=== PATIENT | female | born 1965 | race Caucasian/White ===

== ENCOUNTER 2017-03-30 13:57 | Inpatient (IN) | payer BC ==
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
[2017-03-30] MEDS ORDERED: ALBUTEROL INHALER 60 PUFF/8 GM INHALER INHALATION PRN (23:03)
[2017-03-31] MEDS ORDERED: ACETAMINOPHEN TAB 325 MG TAB PO PRN (01:49)
[2017-03-31] MEDS ORDERED: LORazepam 1 MG TAB PO PRN (01:49)
[2017-03-31] MEDS ORDERED: MAG HYDROX/AL HYDROX/SIMETH 30 ML CUP PO PRN (01:49)
[2017-03-31] MEDS ORDERED: MAGNESIUM HYDROXIDE 2,400 MG/10 ML CUP PO PRN (01:49)
[2017-03-31] MEDS: CARBIDOPA-LEVODOPA ER 50-200MG 1 EACH TABLET.ER PO SCH ×2 (08:42→20:52)
[2017-03-31] MEDS: TAMOXIFEN 10 MG TAB PO SCH (08:43)
[2017-03-31 09:45] VITALS: BMI 18.6
[2017-03-31 10:09] LABS: Basophils % (A) 0 %; CH 34.5; CHCM 36.5; Eosinophils # (A) 0.1 k/uL (0-0.7); Eosinophils % (A) 1 %; HCT 40.9 % (34.0-46.0); HDW 2.88; HGB 14.2 gm/dL (11.4-16.0); Luc # (Auto) 0.17; Luc % (Auto) 2; Lymphocytes # (A) 1.2 k/uL (1.0-4.8); Lymphocytes % (A) 15 %; MCH 32.9 pg (25.0-35.0); MCHC 34.7 g/dL (31.0-37.0); MCV 94.9 fL (80.0-100.0); Mean Platelet Volume 6.7; Monocytes # (A) 0.5 k/uL (0-1.0); Monocytes % (A) 7 %; Neutrophils % (A) 75 %; RBC 4.31 m/uL (3.80-5.40); RDW 13.7 % (11.5-15.5); WBC 7.9 k/uL (3.8-10.6); WBC (Perox) 7.63
[2017-03-31] MEDS: NICOTINE 14MG/24HR PATCH TRANSDERM SCH (11:02)
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
[2017-03-31 14:04] LABS: ALT 29 U/L (9-52); AST 25 U/L (14-36); Alkaline Phosphatase 100 U/L (38-126); Anion Gap 11 mmol/L; Blood Urea Nitrogen 8 mg/dL (7-17); Calcium 9.9 mg/dL (8.4-10.2); Carbon Dioxide 25 mmol/L (22-30); Chloride 103 mmol/L (98-107); Glucose 107 mg/dL (74-99); Non-African American GFR(MDRD) >60 (>60 ml/min/1.73 sqM); Potassium 4.1 mmol/L (3.5-5.1); Sodium 139 mmol/L (137-145); Total Bilirubin 0.8 mg/dL (0.2-1.3); Total Protein 6.8 g/dL (6.3-8.2)
[2017-03-31] MEDS: PRAVASTATIN SODIUM 40 MG TAB PO SCH (20:52)
[2017-03-31] MEDS: LORATADINE 10 MG TAB PO SCH (20:52)
[2017-04-01] MEDS: CARBIDOPA-LEVODOPA ER 50-200MG 1 EACH TABLET.ER PO SCH ×2 (09:03→20:58)
[2017-04-01] MEDS: TAMOXIFEN 10 MG TAB PO SCH (09:03)
[2017-04-01] MEDS: NICOTINE 14MG/24HR PATCH TRANSDERM SCH (09:03)
--- NOTE | 2017-04-01 10:57 | P.CONS ---
History of Present Illness - Reason for Consult Consult date: 04/01/17 Medical management - Chief Complaint Alcohol intoxication - History of Present Illness 52-year-old female currently in the psych unit for management of depression. Patient was brought into the emergency room by police after she was found intoxicated with alcohol and carrying episode. There was concern that she make herself. Patient denies any suicidal thought. She said that the weapon was on the table. She is feeling a lot better today. I was asked to see her for medical management. She does not have any complaints. Review of Systems Review of system: 14 points review of systems were obtained and were negative except to what were mentioned in the HPI. Past Medical History Past Medical History: Cancer Additional Past Medical History / Comment(s): breast cancer History of Any Multi-Drug Resistant Organisms: None Reported Past Surgical History: Breast Surgery Past Psychological History: Anxiety, Depression Smoking Status: Current every day smoker Past Alcohol Use History: Abuse Past Drug Use History: None Reported Medications and Allergies Home Medications Medication Instructions Recorded Confirmed Type Albuterol Inhaler [Ventolin Hfa 2 puff INHALATION RT-Q4H PRN 03/30/17 03/31/17 History Inhaler] Carbidopa/Levodopa [Sinemet CR 1 tab PO BID 03/30/17 03/31/17 History 50-200 mg] Cetirizine HCl [Zyrtec] 10 mg PO HS 03/30/17 03/31/17 History Pravastatin Sodium [Pravachol] 40 mg PO HS 03/30/17 03/31/17 History Tamoxifen Citrate 20 mg PO DAILY 03/30/17 03/31/17 History Allergies Allergy/AdvReac Type Severity Reaction Status Date / Time cephalexin [From Keflex] Allergy Unknown Verified 03/31/17 04:18 Penicillins Allergy Unknown Verified 03/31/17 04:18 Physical Exam Vitals: Vital Signs Temp Pulse Resp BP 04/01/17 06:46 97.9 F 84 16 138/76 General: The patient is awake and alert, in no distress Eye: there is normal conjunctiva bilaterally. Neck: The neck is supple, there is no JVD. Cardiovascular: Normal S1-S2, no S3-S4, no murmurs. Respiratory: Lungs clear to auscultation bilaterally Gastrointestinal: Abdomen is soft, nontender Musculoskeletal: There is no pedal edema. Neurological:. Speech is normal. Skin: Skin is warm and dry Results CBC & Chem 7: 03/31/17 09:39 03/31/17 09:39 Labs: Abnormal Lab Results - Last 24 Hours (Table) 03/31/17 Range/Units 09:39 Glucose 107 H (74-99) mg/dL Assessment and Plan Plan: 1. Depression 2. Suspected suicidal attempt 3. Alcohol abuse 4. History breast cancer status post lumpectomy currently on tamoxifen 5. Restless leg syndrome Today, I reviewed her medication list and lab work results. Continue current regimen. Thank you very much for the consultation. I will continue to follow up on the patient closely.
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
[2017-04-01] MEDS: PRAVASTATIN SODIUM 40 MG TAB PO SCH (20:58)
[2017-04-01] MEDS: LORATADINE 10 MG TAB PO SCH (20:58)
--- NOTE | 2017-04-02 07:33 | P.PN ---
Progress Note - Text Interval history: The patient is found in the library she follows me to an interview room she reports her mood is stabilizing. She is looking forward to her family meeting involving her this morning. She is also looking forward to her son's visiting this evening. She reports sleep is stable appetite is improved. She is attending groups she is reporting no symptoms of depression she is endorsing no hopelessness no suicidal ideation intent or plan. She states she is trying to "stay positive". Mental status exam: The patient is alert she is dressed in her own clothing eye contact is appropriate hygiene grooming are adequate. Speech is fluent spontaneous nonpressured. She is reporting no suicidal or homicidal ideation intent or plan. She is reporting no auditory or visual hallucinations no specific delusions there is no evidence of psychosis. She does not appear hypomanic or manic. She is pleasant and cooperative and easily directed in the session. She demonstrates no verbal or physical aggressiveness. Insight and judgment improving. Plan: The patient will continue on medication as written. She appears to be stabilizing. We will look for input from the family meeting. Vital signs reviewed they're within normal limits we will continue to monitor her for safety. She is encouraged to continue participating in the milieu.
[2017-04-02] MEDS: NICOTINE 14MG/24HR PATCH TRANSDERM SCH (09:21)
[2017-04-02] MEDS: CARBIDOPA-LEVODOPA ER 50-200MG 1 EACH TABLET.ER PO SCH ×2 (09:22→21:16)
[2017-04-02] MEDS: TAMOXIFEN 10 MG TAB PO SCH (09:22)
[2017-04-02] MEDS: PRAVASTATIN SODIUM 40 MG TAB PO SCH (21:16)
[2017-04-02] MEDS: LORATADINE 10 MG TAB PO SCH (21:16)
[2017-04-03 06:42] VITALS: BP 119/71; PULSE 88; RESP 16; TEMP 97.8
[2017-04-03] MEDS: NICOTINE 14MG/24HR PATCH TRANSDERM SCH (09:25)
[2017-04-03] MEDS: CARBIDOPA-LEVODOPA ER 50-200MG 1 EACH TABLET.ER PO SCH (09:26)
[2017-04-03] MEDS: TAMOXIFEN 10 MG TAB PO SCH (09:26)
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
== END 2017-04-03 13:05 | disposition home or self-care (01) | DRG 881 ==
LOC: EC 13:57 → 3MHU 03-31 00:06
PROVIDERS: ADMIT Psychiatry & Neurology Addiction Medicine; ATTEND Psychiatry & Neurology Addiction Medicine
DX: F32.9 Major depressive disorder, single episode, unspecified (principal); R45.851 Suicidal ideations; F10.129 Alcohol abuse with intoxication, unspecified; F17.200 Nicotine dependence, unspecified, uncomplicated; F41.9 Anxiety disorder, unspecified; G25.81 Restless legs syndrome; Z79.899 Other long term (current) drug therapy; Z85.3 Personal history of malignant neoplasm of breast; Z91.5 Personal history of self-harm; Z88.1 Allergy status to other antibiotic agents; Z88.0 Allergy status to penicillin; Y90.6 Blood alcohol level of 120-199 mg/100 ml
CPT/HCPCS: 80053; 80306; 81025; 82075; 84443; 85025

== ENCOUNTER → 2017-04-25 | Outpatient (CLI) | payer BC ==
--- NOTE | 2017-04-26 07:02 | US ---
EXAMINATION TYPE: US pelvis complete transvag DATE OF EXAM: 04/25/2017 COMPARISON: NONE CLINICAL HISTORY: R10.32, C44.501, R10.2, R63, PELVIC PAIN,WEIGHT LOSS,PPL ALVARADO. pelvic pain, weight l oss, breast cancer, on tamoxifen. TECHNIQUE: Transvaginal (TV) and Transabdominal (TA) Date of LMP: 2011 EXAM MEASUREMENTS: Uterus: 4.1 x 3.3 x 4.5 cm Endometrial Stripe: 1.0 cm Right Ovary: unable to visualize Left Ovary: unable to visualize 1. Uterus: Retroverted heterogenous, nabothian cysts 2. Endometrium: upper limits of normal calcifications noted 3. Right Ovary: unable to visualize 4. Left Ovary: unable to visualize 5. Bilateral Adnexa: WNL 6. Posterior cul-de-sac: WNL IMPRESSION: No definite abnormality identified at this time.
== END | disposition home or self-care (01) ==
LOC: RADUSWWP 15:35
PROVIDERS: ATTEND Family Medicine
DX: R10.32 Left lower quadrant pain (principal); C44.501 Unspecified malignant neoplasm of skin of breast; R10.2 Pelvic and perineal pain; R63.4 Abnormal weight loss
CPT/HCPCS: 76830; 76856

== ENCOUNTER → 2018-03-15 | Outpatient (CLI) | payer BC ==
--- NOTE | 2018-03-15 11:29 | XR ---
EXAMINATION TYPE: XR chest 2V DATE OF EXAM: 03/15/2018 COMPARISON: None HISTORY: Persistent cough TECHNIQUE: Frontal and lateral views of the chest are obtained. FINDINGS: There is no focal air space opacity, pleural effusion, or pneumothorax seen. The cardiac silhouette size is within normal limits. The osseous structures are intact. Left breast surgical cl ips are noted. There is an incidentally noted partially visualized chondroid matrix, likely intramedu llary proximal right humeral lesion. IMPRESSION: 1. No acute cardiopulmonary process. 2. Partially visualized chondroid matrix proximal right humeral lesion likely intramedullary. This mo st likely represents an enchondroma or bone infarct. However dedicated radiographs of the right humer us are recommended.
== END | disposition home or self-care (01) ==
LOC: RADXRMAIN 11:08
PROVIDERS: ATTEND Family Medicine
DX: J41.0 Simple chronic bronchitis (principal); F17.200 Nicotine dependence, unspecified, uncomplicated
CPT/HCPCS: 71046

== ENCOUNTER → 2018-04-10 | Outpatient (CLI) | payer BC ==
--- NOTE | 2018-04-10 13:44 | XR ---
EXAMINATION TYPE: XR humerus RT DATE OF EXAM: 04/10/2018 COMPARISON: Chest x-ray 03/15/2018 HISTORY: Abnormal findings TECHNIQUE: 2 view right humerus FINDINGS: There is an irregular sclerotic area within the metaphysis of the proximal humerus. Medulla ry infarct could be considered. Metastatic disease is considered less likely but not excluded. Remaining portions of the humerus appear intact. No additional suspicious lytic or sclerotic areas ar e evident. Joint spaces appear preserved. No acute fractures are evident. IMPRESSION: 1. Sclerotic area within the proximal metaphysis right humerus. Findings suggest medullary infarct.
== END | disposition home or self-care (01) ==
LOC: RADXRMAIN 10:28
PROVIDERS: ATTEND Family Medicine
DX: R93.8 Abnormal findings on diagnostic imaging of other specified body structures (principal)

== ENCOUNTER → 2018-05-29 | Outpatient (CLI) | payer BC ==
--- NOTE | 2018-05-30 01:16 | MR ---
EXAMINATION TYPE: MR shoulder RT wo con DATE OF EXAM: 05/29/2018 COMPARISON: None HISTORY: Hx of breast ca / M89.9 Disorder of bone abnormal chest x-ray TECHNIQUE: Multiplanar, multisequence imaging of the right shoulder is performed without contrast. FINDINGS: On the T2 images there is mixed high and low signal 2 cm somewhat rounded area in the humeral head in volving the metaphysis. The humeral cortex appears intact. The margins are sharp. Appearance is consi stent with osteosclerosis and cystic change related to bone infarct. Subscapularis tendon is intact. Glenoid vero appear intact. There is some fluid in the subacromial j oint space. There is some thinning and slight increased signal in the supraspinatus tendon. There is no retraction. There is no evidence of a fracture. The biceps tendon is intact. IMPRESSION: Mixed signal well-defined lesion in the humeral head consistent with bone infarct. Increased signal in the supraspinatus tendon with fluid consistent with partial tear and tendinitis. No retraction. I do not see a definite full-thickness tear.
== END | disposition home or self-care (01) ==
LOC: RADMRIMAIN 16:32
PROVIDERS: ATTEND Family Medicine
DX: M89.9 Disorder of bone, unspecified (principal); Z85.3 Personal history of malignant neoplasm of breast

== ENCOUNTER → 2019-02-06 | Outpatient (CLI) | payer BC ==
--- NOTE | 2019-02-06 13:35 | XR ---
EXAMINATION TYPE: XR shoulder complete LT DATE OF EXAM: 02/06/2019 CLINICAL HISTORY: pain COMPARISON: NONE TECHNIQUE: Three views of the left shoulder are obtained. FINDINGS: There is no acute fracture/dislocation evident. The acromioclavicular and glenohumeral mayank int spaces appear within normal limits. The visualized ribs are intact and unremarkable. IMPRESSION: 1. There is no acute fracture or dislocation. ICD 10 NO FRACTURE, INITIAL EVALUATION
--- NOTE | 2019-02-06 13:36 | XR ---
EXAMINATION TYPE: XR Hip Complete LT DATE OF EXAM: 02/06/2019 CLINICAL HISTORY: pain TECHNIQUE: AP and frogleg views of the left hip are obtained. COMPARISON: None. FINDINGS: There is no acute fracture/dislocation evident. The joint space appears within normal li mits. The overlying soft tissue appears unremarkable. IMPRESSION: 1. There is no acute fracture or dislocation.ICD 10 NO FRACTURE, INITIAL EVALUATION
== END ==
LOC: RADXRMAIN 13:14
PROVIDERS: ATTEND Family Medicine
DX: M25.512 Pain in left shoulder (principal); M25.552 Pain in left hip; M54.5 Low back pain
CPT/HCPCS: 73502

== ENCOUNTER → 2019-04-03 | Outpatient (CLI) | payer BC ==
--- NOTE | 2019-04-03 11:54 | XR ---
EXAMINATION TYPE: XR lumbosacral spine min 4V DATE OF EXAM: 04/03/2019 CLINICAL HISTORY: Back pain TECHNIQUE: Frontal, lateral, and oblique images of the lumbar spine are obtained. COMPARISON: None FINDINGS: There are 5 lumbar type vertebral bodies identified. The lumbar spine shows satisfactory alignment without evidence of acute fracture or dislocation. Facet arthropathy is seen at L5-S1 predo minating on the left. Vertebral body heights and disk space heights are within normal limits. The o blique images appear within normal limits. The overlying soft tissue appears unremarkable. Mild athe rosclerosis of the abdominal aorta is noted. IMPRESSION: No acute fracture or malalignment is seen in the lumbar spine. Mild facet arthropathy at L5-S1. Given the patient's symptoms MRI could evaluate for disc disease or disc herniation.
--- NOTE | 2019-04-03 15:21 | MR ---
EXAMINATION TYPE: MR shoulder LT wo con DATE OF EXAM: 04/03/2019 COMPARISON: Plain film 02/06/2019 HISTORY: Left shoulder pain TECHNIQUE: Multiplanar, multisequence imaging of the left shoulder is performed without contrast. FINDINGS: Rotator Cuff: The rotator cuff is attenuated the level of its insertion, partial full-thickness thick ness tear is suspected at the supraspinatus insertion anteriorly. Acromioclavicular Joint: Distal acromion is downturned, there is likely a distal acromial spur. Clini teddy history joint arthropathy is present. There is fluid signal in the subacromial subdeltoid bursa. Glenohumeral Joint: Intact and there is some arthropathy glenohumeral joint, remodeling of humeral he ad with some mild joint space loss Labrum: No evident tear Biceps Tendon: The long head of biceps is in normal location within bicipital groove. Bone marrow signal: Pseudocysts are present in the humeral head. Other: No additional significant abnormality is appreciated. IMPRESSION: Partial full-thickness tear of the rotator cuff, correlate for impingement. Additional findings above .
== END ==
LOC: RADMRIMAIN 09:51
PROVIDERS: ATTEND Family Medicine
DX: M75.102 Unspecified rotator cuff tear or rupture of left shoulder, not specified as traumatic (principal); M46.97 Unspecified inflammatory spondylopathy, lumbosacral region; M54.16 Radiculopathy, lumbar region
CPT/HCPCS: 72110

== ENCOUNTER → 2019-04-18 | Outpatient (CLI) | payer BC ==
--- NOTE | 2019-04-18 16:27 | MR ---
EXAMINATION TYPE: MR lumbar spine wo con DATE OF EXAM: 04/18/2019 COMPARISON: None HISTORY: Radiculopathy, lumbar region CONTRAST: 0 mL intravenous Gadavist. TECHNIQUE: Multiplanar, multisequence images of the lumbar spine were acquired. FINDINGS: L5-S1: No significant disc bulge or disc herniation. No spinal canal stenosis. No foraminal stenosi s. . L4-L5: No significant disc bulge or disc herniation. No spinal canal stenosis. No foraminal stenosi s. . L3-L4: No significant disc bulge or disc herniation. No spinal canal stenosis. No foraminal stenosi s. . L2-L3: No significant disc bulge or disc herniation. No spinal canal stenosis. No foraminal stenosi s. . L1-L2: No significant disc bulge or disc herniation. No spinal canal stenosis. No foraminal stenosi s. . T12-L1: No significant disc bulge or disc herniation. No spinal canal stenosis. No foraminal stenos is. . Cord terminates at a normal L1 level IMPRESSION: 1. No suspicious disc herniations or significant disc bulges. No spinal canal stenosis. Mild disc radha iccation is present without loss of disc height or vertebral body height
== END | disposition home or self-care (01) ==
LOC: RADMRIMAIN 12:19
PROVIDERS: ATTEND Family Medicine
DX: M54.16 Radiculopathy, lumbar region (principal)
CPT/HCPCS: 72148

== ENCOUNTER → 2019-05-01 | Outpatient (CLI) | payer BC ==
[2019-05-01 11:06] LABS: Basophils % (A) 0 %; Eosinophils # (A) 0.1 k/uL (0-0.7); Eosinophils % (A) 1 %; HCT 36.2 % (34.0-46.0); HGB 13.3 gm/dL (11.4-16.0); Lymphocytes # (A) 2.6 k/uL (1.0-4.8); Lymphocytes % (A) 22 %; MCH 35.1 pg (25.0-35.0); MCHC 36.9 g/dL (31.0-37.0); MCV 95.3 fL (80.0-100.0); Mean Platelet Volume 7.2; Monocytes # (A) 0.4 k/uL (0-1.0); Monocytes % (A) 3 %; Neutrophils # (A) 8.4 k/uL (1.3-7.7); Neutrophils % (A) 72 %; Platelet Count 230 k/uL (150-450); RDW 14.5 % (11.5-15.5); WBC 11.7 k/uL (3.8-10.6)
[2019-05-01 11:17] LABS: Potassium 4.6 mmol/L (3.5-5.1)
== END | disposition home or self-care (01) ==
LOC: LABPAT 09:50
PROVIDERS: ATTEND Orthopaedic Surgery
DX: Z01.812 Encounter for preprocedural laboratory examination (principal); M75.42 Impingement syndrome of left shoulder
CPT/HCPCS: 36415; 80051; 85025

== ENCOUNTER → 2019-05-08 | Day surgery (SDC) | payer BC ==
[2019-05-01 16:04] VITALS: BMI 18.6
--- NOTE | 2019-05-07 15:40 | HP ---
HISTORY AND PHYSICAL REASON FOR ADMISSION: Surgery scheduled for 05/08/2019 HISTORY OF PRESENT ILLNESS: Radha Puentes is a 54-year-old patient seen with progressive left shoulder pain. After treatment options were discussed with her, she elected to proceed with left shoulder arthroscopy. Consent was obtained. PAST MEDICAL HISTORY: Noncontributory. PAST SURGICAL HISTORY: Noncontributory. MEDICATIONS: Restoril, tamoxifen. ALLERGIES: PENICILLIN. SOCIAL HISTORY: She smokes 1 pack of cigarettes daily. PHYSICAL EXAMINATION: Physical examination of left shoulder: Flexion 90 degrees, abduction 70 degrees, external rotation 20 degrees with weakness. There is tenderness along the anterior lateral acromion rotator cuff insertion site. Her impingement sign is positive at 70 degrees. Distal neurovascular exam is intact. RADIOGRAPHS: Radiographs of the left shoulder revealed a lateral downsloping anterior acromion on the left. MRI left shoulder revealed rotator cuff tear. IMPRESSION: Left shoulder impingement with rotator cuff tear. PLAN: Left shoulder arthroscopy with subacromial decompression, possible arthroscopic rotator cuff repair and debridement. Surgery scheduled for 05/08/2019. MMODL / IJN: [id number] /
[~2019-05-08] MED LIST: DEXAMETHASONE SOD PHOSPHATE 4 MG/ML 1 ML VIAL IV ONE; DEXAMETHASONE SOD PHOSPHATE 4 MG/ML 1 ML VIAL ONE; GLYCOPYRROLATE 0.2 MG/ML 2 ML VIAL ONE; LACTATED RINGERS 1,000 ML IV ONE; LIDOCAINE 1% 20 ML VIAL (10MG/ML) FOR IV START INTRADERMA ONE; LIDOCAINE 1% INJ 10MG/ML (20 ML MDV) ONE; MIDAZOLAM (PF) 2 MG/2 ML VIAL IV ONE; MIDAZOLAM 2 MG/2 ML VIAL ONE; NEOSTIGMINE 1 MG/ML 10 ML VIAL ONE; ONDANSETRON 4 MG/2 ML VIAL IVP ONE; PHENYLEPHRINE-0.9% NACL SYG 1 MG/10 ML SYRINGE ONE; PROPOFOL 10 MG/ML 20 ML VIAL IV ONE; ROCURONIUM BROMIDE 10 MG/ML 10 ML VIAL IV ONE; ROPIVACAINE 5 MG/ML 30 ML VIAL ONE; SUCCINYLCHOLINE CHLORIDE 100 MG/5 ML SYR IV ONE; fentaNYL (PF) 50 MCG/ML 2 ML AMP ONE
--- NOTE | 2019-05-08 11:39 | P.OP ---
Date of Procedure: 05/08/19 Preoperative Diagnosis: Left shoulder impingement Postoperative Diagnosis: 1. Left shoulder rotator cuff tear 2. Left shoulder impingement 3. Left shoulder partial long head biceps tendon tear 4. Left shoulder superficial labral tear 5. 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 Left shoulder arthroscopic rotator cuff repair 2. Left shoulder arthroscopic subacromial decompression 3. Left shoulder arthroscopic biceps tenotomy 4. Left shoulder arthroscopic debridement labral tear Implants: 14.75 Arthrex swivel lock anchor Anesthesia: GETA, regional (Interscalene block) Surgeon: Nicolas Sweeney Brim Pouncing Machine Operator #1: Pancho Lewis Estimated Blood Loss (ml): 10 Pathology: none sent Condition: stable Disposition: PACU Indications for Procedure: 54-year-old patient seen with progressive left shoulder pain. After treatment options were discussed, she elected to proceed with arthroscopy. Operative Findings: See description of procedure Description of Procedure: Patient underwent an interscalene block by department of anesthesia for postoperative pain management. The patient was then taken to the operative suite. The patient underwent a general anesthetic by the department of anesthesia. The patient was placed into a lateral position and secured. There was appropriate padding of the bony prominence. Left shoulder was then prepped and draped in normal sterile orthopedic fashion. We placed the extremity in 10 pounds of longitudinal traction. A posterior incision was now made for a posterior working portal site. The trocar and cannula were inserted into the glenohumeral joint. Arthroscopy was initiated. Spinal needle was now inserted anteriorly, to ascertain the anterior working portal site. An incision was now made in that area, a trocar was inserted followed by a probe. There was superficial tearing noted of the superior labrum. There was partial tearing and hyperemia long head biceps tendon. I couldn't visualize rotator cuff tear from the glenohumeral side. There was an area of grade 2/3 chondromalacia in the superior area of the humeral head. There was no osteochondral tears present there. I performed an arthroscopic biceps tenotomy. I debrided the superficial labral tear down to stable tissue. The residual labrum was stable. Instruments now removed from the glenohumeral joint. Utilizing the posterior working portal site, the trocar and cannula were inserted into the subacromial space. Arthroscopy initiated. I made an incision 2 fingerbreadths lateral to the acromion. I introduced my trocar followed by my ArthroCare ablator. I now began ablating thick subacromial bursal tissue, which exposed the undersurface of the anterior acromion. There was diminished subacromial space. There was a very prominent anterior acromion. A motorized bur was introduced and a subacromial decompression was performed. I also excised some osteophytes off the inferior aspect of the distal clavicle. The AC joint was visualized and noted to be moderately arthritic. I turned my attention to the rotator cuff tendon. There was an obvious full-thickness tear measuring about 1 cm. There was significant partial tearing superficially around areas well. I debrided the margins an area down to stable tendon tissue. The defect now measured 1.5 cm. It was freely mobile over the footprint. I abraded the footprint with a motorized bur. I now with the assistance of López ARMAS pasted 2 everted mattress sutures through good bites of rotator cuff tendon. I then punched the hole in the footprint for insertion of her anchor. We then passed all 4 limbs of suture through the eyelet of a 4.75 Arthrex swivel lock anchor. The eyelet was now placed into our pre-punch hole. López ARMAS t ension the sutures appropriately while the anchor in position and he inserted the anchor with good fixation noted. All residual suture limbs were now clipped. We had good compression of the tendon along the entire footprint. I injected 1 mL Renue intra-articular. Instruments now removed from the portal sites. All portal sites were approximated with nylon suture. Sterile dressings were applied followed by a shoulder sling. Pancho ARMAS assisted in this complex case. The patient was awakened, transferred to a bed, and taken to recovery in stable condition.
[2019-05-08 11:40] VITALS: TEMP 97.5
[2019-05-08 11:48] VITALS: RESP 16
[2019-05-08 13:19] VITALS: BP 109/68; PULSE 80
--- NOTE | 2019-05-08 14:54 | P.ANPRN ---
Procedure Note - Anesthesia - Nerve Block Performed Left Interscalene Single Time Out Performed: Yes Date of Procedure: 05/08/19 Procedure Start Time: 08:39 Procedure Stop Time: 08:44 Location of Patient Procedure: PreOp Indication: Acute Post-Operative Pain, Requested by physician Sedation Type: Sedate with meaningful contact maintained Preparation: Sterile Prep Position: Supine Needle Types: Pajunk Needle Gauge: 21 Technique: Ultrasound (Ropivacaine 0.5% 30 mL plus dexamethasone 4 mg) Blood Aspirated: No Pain Paresthesia on Injection Noted: No Resistance on Injection: Normal Events: Uneventful and Well Tolerated
== END | disposition home or self-care (01) ==
LOC: OR 07:40
PROVIDERS: ATTEND Orthopaedic Surgery
DX: M75.102 Unspecified rotator cuff tear or rupture of left shoulder, not specified as traumatic (principal); M75.42 Impingement syndrome of left shoulder; S46.112A Strain of muscle, fascia and tendon of long head of biceps, left arm, initial encounter; S43.432A Superior glenoid labrum lesion of left shoulder, initial encounter; X58.XXXA Exposure to other specified factors, initial encounter; M94.20 Chondromalacia, unspecified site; M25.712 Osteophyte, left shoulder; Z79.810 Long term (current) use of selective estrogen receptor modulators (SERMs); Z79.899 Other long term (current) drug therapy; Z88.0 Allergy status to penicillin; F17.210 Nicotine dependence, cigarettes, uncomplicated; E78.5 Hyperlipidemia, unspecified; Z85.3 Personal history of malignant neoplasm of breast; G25.81 Restless legs syndrome; Z88.1 Allergy status to other antibiotic agents; Z97.2 Presence of dental prosthetic device (complete) (partial)
CPT/HCPCS: 64415; 29826; 29827; C1713; C1765; J2250 ×2; J1100; J2710; J2405; J0690; J2001; J3010; J2795; J2370; J0330; J2704

== ENCOUNTER → 2019-08-14 | Outpatient (CLI) | payer BC ==
--- NOTE | 2019-08-14 15:18 | US ---
EXAMINATION TYPE: US carotid duplex BILAT DATE OF EXAM: 08/14/2019 COMPARISON: NONE CLINICAL HISTORY: I65.23 OCCLUSION AND STENOSIS. Patient states doctor listened to carotids and heard "something", no h/o stroke, family h/o CAD EXAM MEASUREMENTS: RIGHT: Peak Systolic Velocity (PSV) cm/sec ----- Right CCA: 84.8 ----- Right ICA: 101.4 ----- Right ECA: 100.5 ICA/CCA ratio: 1.2 RIGHT: End Diastole cm/sec ----- Right CCA: 32.2 ----- Right ICA: 37.2 ----- Right ECA: 16.3 LEFT: Peak Systolic Velocity (PSV) cm/sec ----- Left CCA: not detected ----- Left ICA: 27.3 ----- Left ECA: 73.9 ICA/CCA ratio: N/A LEFT: End Diastole cm/sec ----- Left CCA: not detected ----- Left ICA: 3.8 ----- Left ECA: 18.0 VERTEBRALS (direction of flow): Right Vertebral: Antegrade Left Vertebral: Antegrade, increased diameter and velocities noted Rhythm: Normal There is occlusion of the left common carotid artery, internal echoes, small caliber and no signal in dicated with doppler, low velocities seen within left ICA, grayscale, color Doppler, spectral Doppler imaging performed. IMPRESSION: Left common carotid artery occlusion
== END | disposition home or self-care (01) ==
LOC: RADUSWWP 11:54
PROVIDERS: ATTEND Family Medicine
DX: I65.22 Occlusion and stenosis of left carotid artery (principal)
CPT/HCPCS: 93880

== ENCOUNTER → 2020-01-02 | Outpatient (CLI) | payer BC ==
--- NOTE | 2020-01-03 07:47 | XR ---
EXAMINATION TYPE: XR chest 2V DATE OF EXAM: 01/02/2020 COMPARISON: 03/15/2018 HISTORY: Tobacco abuse, shortness of breath. TECHNIQUE: Frontal and lateral views of the chest are obtained. FINDINGS: There is no focal air space opacity, pleural effusion, or pneumothorax seen. The cardiac silhouette size is within normal limits. The osseous structures are intact. Surgical clips are seen within the left breast. Similar-appearing sclerotic lesion of the right proximal humeral head is int ramedullary and may relate to medullary infarct or enchondroma. This is seen on the humeral x-rays of 04/10/2018 more clearly. IMPRESSION: No acute cardiopulmonary process.
== END | disposition home or self-care (01) ==
LOC: RADXRMAIN 16:52
PROVIDERS: ATTEND Family Medicine
DX: R06.02 Shortness of breath (principal); Z72.0 Tobacco use
CPT/HCPCS: 71046

== ENCOUNTER 2020-11-18 08:09 | Day surgery (SDC) | payer BC ==
[2020-10-09 15:04] VITALS: BMI 21.3
[2020-11-18] MEDS: LACTATED RINGERS 1,000 ML IV SCH ×2 (08:25→08:33)
[2020-11-18 08:35] VITALS: RESP 16; TEMP 97.9
[2020-11-18] MEDS ORDERED: PROPOFOL 10 MG/ML 20 ML VIAL IV ONE (09:15)
[2020-11-18] MEDS ORDERED: MIDAZOLAM 2 MG/2 ML VIAL ONE (09:15)
[2020-11-18] MEDS ORDERED: fentaNYL (PF) 50 MCG/ML 2 ML AMP ONE (09:15)
--- NOTE | 2020-11-18 09:34 | P.PCN ---
Date of Procedure: 11/18/20 Procedure(s) Performed: BRIEF HISTORY: Patient is a 55-year-old pleasant female scheduled for an elective colonoscopy as a part of evaluation of prior history of colon polyps. Her last colonoscopy was in 5 years ago. PROCEDURE PERFORMED: Colonoscopy snare polypectomy. PREOPERATIVE DIAGNOSIS: History of colon polyps. IV sedation per Anesthesia. PROCEDURE: After informed consent was obtained, the patient, was brought into the endoscopy unit. IV sedation was administered by Anesthesia under continuous monitoring. Digital rectal examination was normal. Initially the Olympus CF-160 flexible video colonoscope was then inserted in the rectum, gradually advanced into the cecum without any difficulty. Careful examination was performed as the scope was gradually being withdrawn. Ileocecal valve and the appendiceal orifice were visualized and appeared normal. Prep was excellent. Mucosa of the cecum, ascending colon, appeared normal. In the hepatic flexure there was a 1 cm flat polyp that was removed by snare polypectomy. Rest of the transverse colon, descending colon, sigmoid colon, and rectum appeared normal. Retroflexion was performed in the rectum and no lesions were seen. The patient tolerated the procedure well. IMPRESSION: 1 cm hepatic flexure polyp status post polypectomy Rest of the colon appeared normal RECOMMENDATIONS: Findings of this examination were discussed with the patient is a family. She was advised to with the biopsy results. If the biopsy shows adenoma she can have a repeat colonoscopy in 3-5 years
[2020-11-18 10:02] VITALS: BP 123/73; PULSE 84
== END 2020-11-18 10:13 | disposition home or self-care (01) ==
LOC: ORWHC2ENDO 08:09
PROVIDERS: ATTEND Internal Medicine Gastroenterology
DX: Z12.11 Encounter for screening for malignant neoplasm of colon (principal); K63.5 Polyp of colon; Z86.010 Personal history of colon polyps; E78.5 Hyperlipidemia, unspecified; J44.9 Chronic obstructive pulmonary disease, unspecified; F17.210 Nicotine dependence, cigarettes, uncomplicated; Z98.890 Other specified postprocedural states; F41.9 Anxiety disorder, unspecified; F32.9 Major depressive disorder, single episode, unspecified; Z85.3 Personal history of malignant neoplasm of breast; Z92.3 Personal history of irradiation; Z97.2 Presence of dental prosthetic device (complete) (partial); Z79.82 Long term (current) use of aspirin; Z79.810 Long term (current) use of selective estrogen receptor modulators (SERMs); Z79.51 Long term (current) use of inhaled steroids; Z79.899 Other long term (current) drug therapy; Z88.1 Allergy status to other antibiotic agents; Z88.0 Allergy status to penicillin
CPT/HCPCS: 88305; 45385; J2250; J3010; J2704

== ENCOUNTER → 2021-06-18 | Outpatient (CLI) | payer BC ==
--- NOTE | 2021-06-18 11:24 | XR ---
EXAMINATION TYPE: XR lumbar spine 2 or 3V DATE OF EXAM: 06/18/2021 CLINICAL HISTORY: pain TECHNIQUE: Three views of the lumbar spine are submitted. COMPARISON: None. FINDINGS: There are 5 lumbar type vertebral bodies identified. The lumbar spine shows satisfactory alignment w ithout evidence of acute fracture or dislocation. Vertebral body heights are within normal limits. Mild scattered degenerative disc space narrowing and spondylosis. The overlying soft tissue appears unremarkable. IMPRESSION: No acute fracture or dislocation is seen in the lumbar spine. ICD 10 NO FRACTURE, INITIAL EVALUATION
--- NOTE | 2021-06-18 11:25 | XR ---
EXAMINATION TYPE: XR thoracic spine complete DATE OF EXAM: 06/18/2021 CLINICAL HISTORY: pain TECHNIQUE: Frontal, lateral, and swimmer's view of thoracic spine are obtained. COMPARISON: None. FINDINGS: Thoracic spine show satisfactory alignment without evidence of acute fracture or dislocatio n. Vertebral body heights are preserved. Disc spaces are well preserved. Visualized ribs are unrem arkable. IMPRESSION: No acute fracture or dislocation is seen in the thoracic spine. ICD 10 NO FRACTURE, INIT IAL EVALUATION
== END | disposition home or self-care (01) ==
LOC: RADXRMAIN 10:44
PROVIDERS: ATTEND Nurse Practitioner Family
DX: M54.5 Low back pain (principal)
CPT/HCPCS: 72072; 72100

== ENCOUNTER → 2023-09-14 | Outpatient (CLI) | payer BC ==
[2023-09-14 20:30] LABS: Blood Urea Nitrogen 7.2 mg/dL (9.0-27.0); Carbon Dioxide 24.2 mmol/L (21.6-31.8); Chloride 94 mmol/L (96-109); Magnesium 1.8 mg/dL (1.5-2.4); Potassium 5.3 mmol/L (3.5-5.5); Sodium 133 mmol/L (135-145)
[2023-09-15 05:01] LABS: HCT 37.6 % (37.2-46.3); HGB 12.1 d/dL (12.0-15.0); MCH 33.2 pg (27.0-32.0); MCHC 32.2 d/dL (32.0-37.0); MCV 103.3 FL (80.0-97.0); Mean Platelet Volume 8.8 FL (9.5-12.2); NRBC Per 100 WBC 0 X 10*3/uL (0.00-0.01); Platelet Count 316 X 10*3/uL (140-440); RBC 3.64 X 10*6/uL (4.10-5.20); RDW 14.5 % (11.5-14.5); WBC 8.25 X 10*3/uL (4.50-10.00)
== END | disposition home or self-care (01) ==
LOC: LABPAT 12:55
PROVIDERS: ATTEND Internal Medicine Cardiovascular Disease
DX: Z01.812 Encounter for preprocedural laboratory examination (principal); R07.2 Precordial pain
CPT/HCPCS: 80051; 82565; 83735; 84520; 85027

== ENCOUNTER 2023-09-18 06:13 | Day surgery (SDC) | payer BC ==
[~2023-09-18 06:13] MED LIST changes: +ALPRAZolam 0.25 MG TAB PO PRN; +ALPRAZolam 0.5 MG TAB PO PRN; +ASPIRIN 325 MG TAB PO STA; -DEXAMETHASONE SOD PHOSPHATE 4 MG/ML 1 ML VIAL IV ONE; -DEXAMETHASONE SOD PHOSPHATE 4 MG/ML 1 ML VIAL ONE; -GLYCOPYRROLATE 0.2 MG/ML 2 ML VIAL ONE; -LACTATED RINGERS 1,000 ML IV ONE; -LIDOCAINE 1% 20 ML VIAL (10MG/ML) FOR IV START INTRADERMA ONE; -LIDOCAINE 1% INJ 10MG/ML (20 ML MDV) ONE; -MIDAZOLAM (PF) 2 MG/2 ML VIAL IV ONE; -MIDAZOLAM 2 MG/2 ML VIAL ONE; -NEOSTIGMINE 1 MG/ML 10 ML VIAL ONE; +NITROGLYCERIN SL TABS 0.4 MG TAB SUBLINGUAL PRN; -ONDANSETRON 4 MG/2 ML VIAL IVP ONE; -PHENYLEPHRINE-0.9% NACL SYG 1 MG/10 ML SYRINGE ONE; -PROPOFOL 10 MG/ML 20 ML VIAL IV ONE; -ROCURONIUM BROMIDE 10 MG/ML 10 ML VIAL IV ONE; -ROPIVACAINE 5 MG/ML 30 ML VIAL ONE; +SODIUM CHLORIDE 0.9% 1,000 ML in EMPTY BAG 1 BAG IV SCH; -SUCCINYLCHOLINE CHLORIDE 100 MG/5 ML SYR IV ONE; -fentaNYL (PF) 50 MCG/ML 2 ML AMP ONE
[2023-09-18 06:54] VITALS: RESP 18; TEMP 97.8
[2023-09-18] MEDS ORDERED: LIDOCAINE 1% INJ 10MG/ML (20 ML MDV) ONE (07:47)
[2023-09-18] MEDS ORDERED: VERAPAMIL 2.5 MG/ML 2 ML AMP ONE (07:47)
[2023-09-18] MEDS ORDERED: HEPARIN SODIUM 1,000 UN/ML (10ML VL) ONE (07:47)
[2023-09-18] MEDS ORDERED: fentaNYL (PF) 50 MCG/ML 2 ML AMP ONE (07:48)
[2023-09-18] MEDS ORDERED: LIDOCAINE 1% INJ 10MG/ML (20 ML MDV) SQ ONE (08:06)
[2023-09-18] MEDS ORDERED: VERAPAMIL SYRINGE (5 MG/10 ML) INTRAARTER ONE (08:08)
[2023-09-18] MEDS ORDERED: fentaNYL (PF) 50 MCG/1 ML VIAL IVP ONE (08:09)
[2023-09-18] MEDS ORDERED: MIDAZOLAM 2 MG/2 ML VIAL IVP ONE (08:09)
[2023-09-18] MEDS ORDERED: HEPARIN SODIUM 1,000 UN/ML (10ML VL) IV ONE (08:23)
[2023-09-18] MEDS ORDERED: IOPAMIDOL-370 100ML BTL INJ ONE (08:30)
--- NOTE | 2023-09-18 09:01 | CC ---
CARDIAC CATHETERIZATION REPORT INDICATION: Unstable angina. PROCEDURE NOTE: After obtaining informed consent, left heart catheterization and coronary angiogram were performed via right radial artery using standard Saloni catheters. The patient tolerated the procedure well without any obvious immediate complications. The patient received moderate conscious sedation. Total sedation time was 28 minutes. A TR band was used for hemostasis. The right radial artery access was obtained using Seldinger technique, 6-Argentine sheath was placed, and catheters and wires were floated into the ascending aorta under fluoroscopic guidance, where they were exchanged. I could not initially pass a Glidewire into the ascending aorta. Dr. Hernandez, the available braiding machine operator, manipulated the Glidewire into the ascending aorta from where I exchanged the catheters. FINDINGS: 1. HEMODYNAMICS: Left ventricular end-diastolic pressure is 18 mmHg. There is no significant gradient across the aortic valve. 2. LEFT VENTRICULOGRAM: Left ventriculogram is not performed. 3. ANGIOGRAPHIC DATA: a.Right coronary artery: Right coronary artery is a large dominant vessel and is free of significant stenosis. b.Left main coronary artery is a normal-sized vessel and is free of stenosis, divides into left anterior descending coronary artery and circumflex coronary artery. LAD and its branches and circumflex coronary artery and its branches are free of significant stenosis. Circumflex is a nondominant vessel. CONCLUSION: Normal coronary arteries. PLAN: The patient's chest discomfort is probably noncardiac in origin, and her management is going to be in the form of risk factor modification and medical therapy. MMODL / IJN: [id number] /
[2023-09-18 10:37] VITALS: PULSE 97
[2023-09-18 12:06] VITALS: BP 132/74
[2023-09-19] MEDS ORDERED: lisinopriL 20 MG TAB PO SCH (09:00)
[2023-09-19] MEDS ORDERED: lisinopriL 10 MG TAB PO SCH (09:00)
== END 2023-09-18 12:45 | disposition home or self-care (01) ==
LOC: CATHCVL 06:13
PROVIDERS: ATTEND Internal Medicine Cardiovascular Disease
DX: I20.0 Unstable angina (principal); I10 Essential (primary) hypertension; E78.5 Hyperlipidemia, unspecified; Z79.899 Other long term (current) drug therapy; Z79.82 Long term (current) use of aspirin; Z87.891 Personal history of nicotine dependence
CPT/HCPCS: 93458; 99152; 99153; C1769 ×2; C1894; J2250; J2001; J1644; Q9967; J3010

== ENCOUNTER 2025-06-06 09:19 | Day surgery (SDC) | payer BC ==
[2025-06-04 15:19] VITALS: BMI 28.2
[~2025-06-06 09:19] MED LIST changes: -ALPRAZolam 0.25 MG TAB PO PRN; -ALPRAZolam 0.5 MG TAB PO PRN; -ASPIRIN 325 MG TAB PO STA; +LIDOCAINE 1% (10MG/ML) FOR IV START INTRADERMA PRN; -NITROGLYCERIN SL TABS 0.4 MG TAB SUBLINGUAL PRN; -SODIUM CHLORIDE 0.9% 1,000 ML in EMPTY BAG 1 BAG IV SCH
[2025-06-06 10:27] VITALS: TEMP 97.4
[2025-06-06] MEDS: IV FLUID CONTINUATION 1,000 ML IV ONE ×2 (10:34→11:00)
[2025-06-06] MEDS: LACTATED RINGERS 1,000 ML IV SCH (10:34)
[2025-06-06] MEDS ORDERED: PROPOFOL 10 MG/ML 20 ML VIAL IV ONE (11:09)
--- NOTE | 2025-06-06 11:28 | P.PCN ---
Date of Procedure: 06/06/25 Procedure(s) Performed: BRIEF HISTORY: Patient is a 60-year-old pleasant white female scheduled for an elective colonoscopy as a part of screening for prior history of colon polyps and newly diagnosed anemia... Last colonoscopy was 5 years ago. PROCEDURE PERFORMED: Colonoscopy with biopsy and snare polypectomy. PREOPERATIVE DIAGNOSIS: Screening for history of colon polyps. IV sedation per Anesthesia. PROCEDURE: After informed consent was obtained, the patient, was brought into the endoscopy unit. IV sedation was administered by Anesthesia under continuous monitoring. Digital rectal examination was normal. Initially the Olympus CF-160 flexible video colonoscope was then inserted in the rectum, gradually advanced into the cecum without any difficulty. Careful examination was performed as the scope was gradually being withdrawn. Ileocecal valve and the appendiceal orifice were visualized and appeared normal. Prep was excellent. Mucosa of the cecum, ascending colon appeared normal. The transverse colon there was a 3 mm polyp that was removed by cold biopsy. This was, transverse colon, descending colon, appeared normal. The sigmoid colon there was a 7 mm and 1 cm polyp that was removed by cold and hot snare polypectomy. Scattered sigmoid diverticulosis seen. Rest of the sigmoid colon, and rectum appeared normal. Retroflexion was performed in the rectum and no lesions were seen. The patient tolerated the procedure well. IMPRESSION: 3 mm transverse colon polyp status post cold biopsy. 7 mm and 1 cm sigmoid colon polyp status post hot and cold snare polypectomy Scattered sigmoid diverticulosis. RECOMMENDATIONS: Findings of this examination were discussed with the patient as well as her family.. She was advised to follow-up with the biopsy results. If the biopsy reveals adenoma she can have repeat colonoscopy in 3 years.
[2025-06-06 11:47] VITALS: RESP 16
[2025-06-06 12:17] VITALS: BP 107/81; PULSE 82
== END 2025-06-06 12:26 | disposition home or self-care (01) ==
LOC: ORWHC2ENDO 09:19
PROVIDERS: ATTEND Internal Medicine Gastroenterology
DX: Z12.11 Encounter for screening for malignant neoplasm of colon (principal); K63.5 Polyp of colon; K57.30 Diverticulosis of large intestine without perforation or abscess without bleeding; C50.911 Malignant neoplasm of unspecified site of right female breast; I25.10 Atherosclerotic heart disease of native coronary artery without angina pectoris; J44.9 Chronic obstructive pulmonary disease, unspecified; E78.5 Hyperlipidemia, unspecified; D64.9 Anemia, unspecified; I10 Essential (primary) hypertension; F41.9 Anxiety disorder, unspecified; F32.A Depression, unspecified; G25.81 Restless legs syndrome; Z88.0 Allergy status to penicillin; Z88.1 Allergy status to other antibiotic agents; Z79.02 Long term (current) use of antithrombotics/antiplatelets; Z79.899 Other long term (current) drug therapy
CPT/HCPCS: 45380; 45385; J2704; 88305